=== PATIENT | female | born 1955 | race African-American/Black ===

== ENCOUNTER 2023-01-11 18:35 | Emergency (ER) | payer MEDICARE, OTHER ==
[~2023-01-11] VITALS: Ht 160 cm; Wt 50.3 kg
[~2023-01-11 18:35] MED LIST: AMLODIPINE BESYL5 MG PO; ESGIC 50-325-41 EACH PO; LOSARTAN POTAS100 MG PO; ONDANSETRON ODT4 MG PO
[2023-01-11] MEDS ORDERED: KETOROLAC TROMETHAMINE 30 MG/ML VIAL IM ONE (19:30)
[2023-01-11] MEDS ORDERED: KETOROLAC TROMETHAMINE 30 MG/ML VIAL ONE (19:44)
[2023-01-11] MEDS ORDERED: PREDNISONE 20 MG TAB PO ONE (20:30)
[2023-01-11] MEDS ORDERED: PREDNISONE20 MG PO (20:30)
[2023-01-11] MEDS ORDERED: PREDNISONE 20 MG TAB ONE (20:31)
[2023-01-11 20:45] VITALS: BP 196/70; PULSE 54; RESP 16; TEMP 97.3; O2SAT 97
== END 2023-01-11 20:45 | disposition home or self-care (01) ==
LOC: FSED 18:59
DX: M25.551 Pain in right hip (principal); M54.31 Sciatica, right side; M70.61 Trochanteric bursitis, right hip; I10 Essential (primary) hypertension; E78.5 Hyperlipidemia, unspecified; H90.5 Unspecified sensorineural hearing loss
CPT/HCPCS: 73502; 96372; 99283; J1885; J7512

== ENCOUNTER 2023-10-10 10:08 | Emergency (ER) | payer MEDICARE, OTHER ==
[~2023-10-10] VITALS: Ht 160 cm; Wt 50.3 kg
[~2023-10-10 10:08] MED LIST changes: +PREDNISONE20 MG PO
[2023-10-10] MEDS: KETOROLAC TROMETHAMINE 30 MG/ML VIAL IM STA (13:03)
[2023-10-10 14:44] VITALS: PULSE 76; RESP 18; TEMP 98.4; O2SAT 98
== END 2023-10-10 14:50 | disposition home or self-care (01) ==
LOC: ER 10:12
DX: M54.2 Cervicalgia (principal); W18.2XXA Fall in (into) shower or empty bathtub, initial encounter; Y93.E1 Activity, personal bathing and showering; Y92.89 Other specified places as the place of occurrence of the external cause; I10 Essential (primary) hypertension; E78.5 Hyperlipidemia, unspecified; M19.09 Primary osteoarthritis, other specified site
CPT/HCPCS: 72125; 99284; J1885